=== PATIENT | male | born 1925 | race Caucasian/White ===

== ENCOUNTER 2016-10-01 15:22 | Inpatient (IN) | payer MEDICARE ==
[~2016-10-01] VITALS: Ht 180.3 cm; Wt 94.0 kg
[~2016-10-01 15:22] MED LIST: 00186-0372-20 IH; ASPIRIN E.C. 8181 MG PO; CPAP; FLOMAX 0.40.4 MG/CAP PO; LASIX 20MG TABL20 MG PO; PROSCAR 5MG5 MG PO; PROVENTIL0.09 MG/A1; RT SPIRIVA18 MCG IH; SYNTHROID0.05 MG/TA PO; ZOCOR 80MG80 MG PO
[2016-10-01] MEDS ORDERED: PRINIVIL5 MG PO (15:44)
[2016-10-01 15:58] LABS: BASO # 0.1 (0.0-0.2); BASO % 0.4 % (0.0-2.0); EOS # 0.2 (0.0-0.7); EOS % 1.3 % (0-4.0); GRAN # 7.9 (1.4-6.5); GRAN % 67.9 % (42.2-75.2); HEMATOCRIT 40.4 % (42.0-52.0); HEMOGLOBIN 13.7 g/dl (13.5-18.0); LYMPH # 2.5 (1.2-3.4); LYMPH % 21.8 % (20.0-51.0); MEAN CELL VOLUME 94 fl (80.0-100.0); MEAN CORPUSCULAR HEMOGLOBIN 32 pg (27.0-31.0); MEAN CORPUSCULAR HGB CONC 34 g/dl (33.0-37.0); MEAN PLATELET VOLUME 9.7 fl (7.4-10.4); MONO % 8.3 % (1.7-9.3); PLATELET COUNT 247 K/mm3 (130-400); RED BLOOD COUNT 4.28 M/mm3 (4.20-5.60); REDCELL DISTRIBUTION WIDTH-CV 12.4 % (11.5-14.5); WHITE BLOOD COUNT 11.6 K/mm3 (4.8-10.8)
[2016-10-01 16:00] LABS: ADJUSTED CALCIUM 8.9 mg/dL (8.4-10.2); ALANINE AMINOTRANSFERASE 32 U/L (21-72); ALBUMIN 3.9 gm/dL (3.5-5.0); ALKALINE PHOSPHATASE 70 U/L (50-136); ANION GAP 10 mmol/L (7-16); BILIRUBIN,TOTAL 0.8 mg/dL (0.0-1.0); BLOOD UREA NITROGEN 14 mg/dL (9-20); CALCIUM 8.8 mg/dL (8.4-10.2); CARBON DIOXIDE 25 mmol/L (22-30); CHLORIDE 100 mmol/L (98-107); CREATININE, serum 0.93 mg/dL (0.66-1.25); GLUCOSE 124 mg/dL (74-106); LIPASE 20 U/L (23-300); POTASSIUM 4.6 mmol/L (3.4-5.0); SODIUM 135 mmol/L (137-145); TOTAL PROTEIN 7.2 gm/dL (6.4-8.2)
[2016-10-01 16:16] LABS: TROPONIN-I < 0.012 ng/mL (0.000-0.034)
[2016-10-01 16:25] LABS: PH 6 (5-8); SQUAMOUS EPITHELIAL 0-2 /hpf; URINE APPEARANCE Clear; URINE BACTERIA None Seen /hpf; URINE BILIRUBIN Negative (NEGATIVE); URINE BLOOD Negative (NEGATIVE); URINE COLOR Yellow; URINE GLUCOSE Negative (NEGATIVE); URINE KETONE Negative (NEGATIVE); URINE RBC 0-2 /hpf; URINE UROBILINOGEN Negative (NEGATIVE)
[2016-10-01 20:26] VITALS: BP 102/84; PULSE 72; TEMP 98.9
[2016-10-01 23:59] VITALS: BP 138/44; PULSE 65; TEMP 98.7
[2016-10-02 03:18] VITALS: BP 146/52; PULSE 62; TEMP 98.3
[2016-10-02 08:59] VITALS: BP 140/49; PULSE 62; TEMP 98.3
[2016-10-02 09:27] LABS: HEMATOCRIT 40.7 % (42.0-52.0); HEMOGLOBIN 13.4 g/dl (13.5-18.0); MEAN CELL VOLUME 97 fl (80.0-100.0); MEAN CORPUSCULAR HEMOGLOBIN 32 pg (27.0-31.0); MEAN CORPUSCULAR HGB CONC 33 g/dl (33.0-37.0); MEAN PLATELET VOLUME 10.4 fl (7.4-10.4); PLATELET COUNT 201 K/mm3 (130-400); RED BLOOD COUNT 4.21 M/mm3 (4.20-5.60); REDCELL DISTRIBUTION WIDTH-CV 12.4 % (11.5-14.5); WHITE BLOOD COUNT 17.5 K/mm3 (4.8-10.8)
[2016-10-02 09:33] LABS: ADD PATHOLOGY DIFF REVIEW NO
[2016-10-02 09:39] LABS: CALCIUM 8.4 mg/dL (8.4-10.2); CREATININE, serum 0.9 mg/dL (0.66-1.25); POTASSIUM 4.6 mmol/L (3.4-5.0)
[2016-10-02 09:52] LABS: BAND 14 % (0-10); METAMYELOCYTE 1 % (0-0); NEUTROPHILS 81 % (42.0-75.2); PLATELET ESTIMATE NORMAL (NORMAL); TOTAL CELLS COUNTED 100
[2016-10-02 11:55] VITALS: BP 143/56; PULSE 72; TEMP 97.4
[2016-10-02 16:16] VITALS: BP 141/49; PULSE 73; TEMP 97.6
[2016-10-02 20:24] VITALS: BP 146/39; PULSE 91; TEMP 98
[2016-10-02 23:14] VITALS: BP 143/45; PULSE 82; TEMP 98.7
[2016-10-03] VITALS (11 sets, daily range): BP systolic 138–167; BP diastolic 44–78; PULSE 81–96; TEMP 96.6–98.7
[2016-10-04 03:41] VITALS: BP 127/74; PULSE 79; TEMP 98.4
[2016-10-04 08:14] VITALS: BP 165/60; PULSE 97; TEMP 97.7
[2016-10-04] MEDS ORDERED: PREDNISONE20 MG PO (10:58)
[2016-10-04] MEDS ORDERED: CEFTIN500 MG PO (11:07)
[2016-10-04] MEDS ORDERED: DOXYCYCLINE 10100 MG PO (11:07)
[2016-10-04 11:29] LABS: HEMOGLOBIN 12.4 g/dl (13.5-18.0); MEAN CELL VOLUME 97 fl (80.0-100.0); MEAN CORPUSCULAR HEMOGLOBIN 32 pg (27.0-31.0); MEAN CORPUSCULAR HGB CONC 33 g/dl (33.0-37.0); MEAN PLATELET VOLUME 10.6 fl (7.4-10.4); PLATELET COUNT 196 K/mm3 (130-400); RED BLOOD COUNT 3.93 M/mm3 (4.20-5.60); REDCELL DISTRIBUTION WIDTH-CV 12.9 % (11.5-14.5); WHITE BLOOD COUNT 18.1 K/mm3 (4.8-10.8)
[2016-10-04 11:36] LABS: ADD PATHOLOGY DIFF REVIEW NO
[2016-10-04 12:03] LABS: BAND 17 % (0-10); METAMYELOCYTE 1 % (0-0); NEUTROPHILS 77 % (42.0-75.2); PLATELET ESTIMATE NORMAL (NORMAL); TOTAL CELLS COUNTED 100
[2016-10-04 12:39] VITALS: BP 185/60; PULSE 94; TEMP 97.5
== END 2016-10-04 14:30 | disposition home or self-care (01) | DRG 193 ==
LOC: COL.ER 15:22 → MEDICAL 19:46
PROVIDERS: Emergency Medicine; Internal Medicine Pulmonary Disease; Nurse Practitioner Family; Physician Assistant
PROC: 0B9B8ZX Drainage of Left Lower Lobe Bronchus, Via Natural or Artificial Opening Endoscopic, Diagnostic (ICD-10-PCS; 2016-10-03)
PROC: 0B968ZX Drainage of Right Lower Lobe Bronchus, Via Natural or Artificial Opening Endoscopic, Diagnostic (ICD-10-PCS; principal; 2016-10-03 11:00)
DX: J18.9 Pneumonia, unspecified organism (principal); J96.01 Acute respiratory failure with hypoxia; J44.1 Chronic obstructive pulmonary disease with (acute) exacerbation; N39.0 Urinary tract infection, site not specified; E87.1 Hypo-osmolality and hyponatremia; J90 Pleural effusion, not elsewhere classified; Z66 Do not resuscitate; I10 Essential (primary) hypertension; I71.4 Abdominal aortic aneurysm, without rupture; E03.9 Hypothyroidism, unspecified; G47.33 Obstructive sleep apnea (adult) (pediatric); N40.0 Benign prostatic hyperplasia without lower urinary tract symptoms; Z87.891 Personal history of nicotine dependence
CPT/HCPCS: 99222-AI; 99232-AI; 99239; A9284; J0456; J0696; J1170; J1650; J1885; J2405; J2704; J2920; J2930; J3010; J7030; J7040; J7050; Q9967

== ENCOUNTER → 2016-10-07 | Outpatient (CLI) | payer MEDICARE ==
[~2016-10-07] MED LIST changes: +CEFTIN500 MG PO; +CLEOCIN HCL300 MG PO; +DOXYCYCLINE 10100 MG PO; +LEVAQUIN 5500 MG/TA1 PO; +NORCO 325 MG-7.1 TAB PO; +PREDNISONE20 MG PO; +PRINIVIL5 MG PO; +ZOCOR 40MG40 MG PO
[2016-10-07 20:04] LABS: HEMATOCRIT 39.8 % (42.0-52.0); HEMOGLOBIN 13.3 g/dl (13.5-18.0); MEAN CELL VOLUME 94 fl (80.0-100.0); MEAN CORPUSCULAR HEMOGLOBIN 31 pg (27.0-31.0); MEAN CORPUSCULAR HGB CONC 33 g/dl (33.0-37.0); MEAN PLATELET VOLUME 11.1 fl (7.4-10.4); PLATELET COUNT 229 K/mm3 (130-400); RED BLOOD COUNT 4.23 M/mm3 (4.20-5.60); REDCELL DISTRIBUTION WIDTH-CV 12.5 % (11.5-14.5)
[2016-10-07 20:13] LABS: ADD PATHOLOGY DIFF REVIEW NO
[2016-10-07 21:31] LABS: BAND 15 % (0-10); NEUTROPHILS 76 % (42.0-75.2); TOTAL CELLS COUNTED 100
[2016-10-07 21:32] LABS: PLATELET ESTIMATE NORMAL (NORMAL)
== END ==
LOC: EDSTATUS 11:33 → ZCOL.LAB 11:35
PROVIDERS: Nurse Practitioner Family
DX: J18.9 Pneumonia, unspecified organism (principal); J90 Pleural effusion, not elsewhere classified

== ENCOUNTER 2016-10-11 09:41 | Inpatient (IN) | payer MEDICARE ==
[~2016-10-11] VITALS: Ht 180.3 cm; Wt 84.5 kg
[~2016-10-11 09:41] MED LIST changes: -CLEOCIN HCL300 MG PO; -LEVAQUIN 5500 MG/TA1 PO; -NORCO 325 MG-7.1 TAB PO; -ZOCOR 40MG40 MG PO
[2016-10-11] MEDS ORDERED: ZOCOR 40MG40 MG PO (10:08)
[2016-10-11 10:27] VITALS: BP 139/69; PULSE 72; TEMP 97.3
[2016-10-11 15:16] LABS: PLEURAL FLUID RIGHT SIDE; PLEURAL FLUID APPEARANCE CLOUDY; PLEURAL FLUID COLOR AMBER
[2016-10-11 15:20] LABS: GLUCOSE,PLEURAL FLUID 111 mg/dL
[2016-10-11 16:26] LABS: MEAN CELL VOLUME 94 fl (80.0-100.0); MEAN CORPUSCULAR HGB CONC 33 g/dl (33.0-37.0); MEAN PLATELET VOLUME 10.3 fl (7.4-10.4); PLATELET COUNT 172 K/mm3 (130-400); RED BLOOD COUNT 3.64 M/mm3 (4.20-5.60); REDCELL DISTRIBUTION WIDTH-CV 12.5 % (11.5-14.5)
[2016-10-11 16:36] LABS: HEMATOCRIT 34.2 % (42.0-52.0); HEMOGLOBIN 11.4 g/dl (13.5-18.0); MEAN CORPUSCULAR HEMOGLOBIN 31 pg (27.0-31.0)
[2016-10-11 16:37] LABS: ADD PATHOLOGY DIFF REVIEW NO; INR 1.2 (0.8-3.0); PROTHROMBIN TIME 13.4 SECONDS (9.7-12.8)
[2016-10-11 16:39] LABS: ADJUSTED CALCIUM 8.2 mg/dL (8.4-10.2); ALBUMIN 2.4 gm/dL (3.5-5.0); BILIRUBIN,TOTAL 1.1 mg/dL (0.0-1.0); CALCIUM 6.9 mg/dL (8.4-10.2); CREATININE, serum 0.68 mg/dL (0.66-1.25); MAGNESIUM 1.7 mg/dL (1.6-2.3); PHOSPHOROUS 2.8 mg/dL (2.5-4.5); TOTAL PROTEIN 4.8 gm/dL (6.4-8.2)
[2016-10-11 18:00] VITALS: BP 142/61; PULSE 63; TEMP 98.1
[2016-10-11 20:19] LABS: BAND 10 % (0-10); EOSINOPHIL 2 % (0-4); NEUTROPHILS 68 % (42.0-75.2); TOTAL CELLS COUNTED 100
[2016-10-11 21:37] VITALS: BP 169/57; PULSE 66; TEMP 98.1
[2016-10-12] VITALS (13 sets, daily range): BP systolic 130–167; BP diastolic 49–84; PULSE 64–87; TEMP 97.4–98.9
[2016-10-13 02:34] VITALS: BP 132/75; PULSE 87; TEMP 98
[2016-10-13 05:12] VITALS: BP 116/67; PULSE 68; TEMP 97.4
[2016-10-13 07:34] LABS: BASO % 0.2 % (0.0-2.0); EOS # 0.2 (0.0-0.7); EOS % 1.4 % (0-4.0); GRAN # 13.6 (1.4-6.5); GRAN % 80.4 % (42.2-75.2); HEMATOCRIT 39.2 % (42.0-52.0); HEMOGLOBIN 12.6 g/dl (13.5-18.0); LYMPH # 1.5 (1.2-3.4); LYMPH % 8.9 % (20.0-51.0); MEAN CELL VOLUME 98 fl (80.0-100.0); MEAN CORPUSCULAR HEMOGLOBIN 31 pg (27.0-31.0); MEAN CORPUSCULAR HGB CONC 32 g/dl (33.0-37.0); MEAN PLATELET VOLUME 10.6 fl (7.4-10.4); MONO # 1.4 (0.1-0.6); PLATELET COUNT 170 K/mm3 (130-400); RED BLOOD COUNT 4.01 M/mm3 (4.20-5.60); REDCELL DISTRIBUTION WIDTH-CV 12.5 % (11.5-14.5)
[2016-10-13 08:03] LABS: CALCIUM 8.2 mg/dL (8.4-10.2); CREATININE, serum 0.82 mg/dL (0.66-1.25); POTASSIUM 4.2 mmol/L (3.4-5.0)
[2016-10-13 09:41] VITALS: BP 119/44; PULSE 70; TEMP 97.3
[2016-10-13 13:37] VITALS: BP 112/46; PULSE 89; TEMP 97.3
[2016-10-13 17:55] VITALS: BP 132/59; PULSE 87; TEMP 97.7
[2016-10-13 21:31] VITALS: BP 138/53; PULSE 92; TEMP 98
[2016-10-14 05:22] VITALS: BP 122/53; PULSE 69; TEMP 987
[2016-10-14 06:58] VITALS: BP 125/46; PULSE 69; TEMP 97.4
[2016-10-14 07:39] LABS: BASO % 0.2 % (0.0-2.0); EOS # 0.2 (0.0-0.7); EOS % 1.3 % (0-4.0); GRAN # 14.5 (1.4-6.5); GRAN % 81.3 % (42.2-75.2); HEMATOCRIT 38.7 % (42.0-52.0); HEMOGLOBIN 12.4 g/dl (13.5-18.0); LYMPH # 1.5 (1.2-3.4); LYMPH % 8.1 % (20.0-51.0); MEAN CELL VOLUME 98 fl (80.0-100.0); MEAN CORPUSCULAR HEMOGLOBIN 31 pg (27.0-31.0); MEAN CORPUSCULAR HGB CONC 32 g/dl (33.0-37.0); MEAN PLATELET VOLUME 10.5 fl (7.4-10.4); MONO # 1.5 (0.1-0.6); MONO % 8.2 % (1.7-9.3); PLATELET COUNT 151 K/mm3 (130-400); RED BLOOD COUNT 3.97 M/mm3 (4.20-5.60); REDCELL DISTRIBUTION WIDTH-CV 12.4 % (11.5-14.5); WHITE BLOOD COUNT 17.9 K/mm3 (4.8-10.8)
[2016-10-14 08:10] LABS: CALCIUM 8.4 mg/dL (8.4-10.2); CREATININE, serum 0.82 mg/dL (0.66-1.25); POTASSIUM 4.2 mmol/L (3.4-5.0)
[2016-10-14 10:00] VITALS: BP 125/47; PULSE 71; TEMP 97.4
[2016-10-14 13:25] VITALS: BP 119/45; PULSE 66; TEMP 98.1
[2016-10-14 17:40] VITALS: BP 167/48; PULSE 58; TEMP 98.7
[2016-10-14 21:51] VITALS: BP 156/44; PULSE 90; TEMP 98
[2016-10-15 01:53] VITALS: BP 134/44; PULSE 71; TEMP 97.5
[2016-10-15 06:24] VITALS: BP 132/71; PULSE 83; TEMP 97.5
[2016-10-15 08:00] LABS: BASO % 0.2 % (0.0-2.0); EOS # 0.2 (0.0-0.7); EOS % 1.3 % (0-4.0); GRAN # 11.6 (1.4-6.5); GRAN % 80.8 % (42.2-75.2); LYMPH # 1.2 (1.2-3.4); LYMPH % 8.1 % (20.0-51.0); MEAN CELL VOLUME 96 fl (80.0-100.0); MEAN CORPUSCULAR HGB CONC 33 g/dl (33.0-37.0); MEAN PLATELET VOLUME 10.7 fl (7.4-10.4); MONO # 1.3 (0.1-0.6); MONO % 8.8 % (1.7-9.3); PLATELET COUNT 139 K/mm3 (130-400); RED BLOOD COUNT 3.78 M/mm3 (4.20-5.60); REDCELL DISTRIBUTION WIDTH-CV 12.4 % (11.5-14.5); WHITE BLOOD COUNT 14.3 K/mm3 (4.8-10.8)
[2016-10-15 08:01] LABS: HEMATOCRIT 36.2 % (42.0-52.0); HEMOGLOBIN 11.9 g/dl (13.5-18.0); MEAN CORPUSCULAR HEMOGLOBIN 31 pg (27.0-31.0)
[2016-10-15 08:23] LABS: CALCIUM 8.1 mg/dL (8.4-10.2); CREATININE, serum 0.77 mg/dL (0.66-1.25)
[2016-10-15 09:30] VITALS: BP 133/46; PULSE 64; TEMP 97.4
[2016-10-15 14:24] VITALS: BP 125/42; PULSE 75; TEMP 97.1
[2016-10-15 17:21] VITALS: BP 126/49; PULSE 72; TEMP 98.5
[2016-10-15 22:38] VITALS: BP 125/49; PULSE 70; TEMP 97.4
[2016-10-16 06:22] VITALS: BP 147/58; PULSE 68; TEMP 97.9
[2016-10-16 07:07] LABS: BASO % 0.3 % (0.0-2.0); EOS # 0.2 (0.0-0.7); EOS % 2.1 % (0-4.0); GRAN # 7.1 (1.4-6.5); GRAN % 75.9 % (42.2-75.2); LYMPH # 1.1 (1.2-3.4); LYMPH % 11.6 % (20.0-51.0); MEAN CELL VOLUME 96 fl (80.0-100.0); MEAN CORPUSCULAR HGB CONC 32 g/dl (33.0-37.0); MEAN PLATELET VOLUME 10.3 fl (7.4-10.4); MONO # 0.9 (0.1-0.6); MONO % 9.4 % (1.7-9.3); PLATELET COUNT 143 K/mm3 (130-400); RED BLOOD COUNT 3.66 M/mm3 (4.20-5.60); REDCELL DISTRIBUTION WIDTH-CV 12.4 % (11.5-14.5); WHITE BLOOD COUNT 9.3 K/mm3 (4.8-10.8)
[2016-10-16 07:26] LABS: HEMATOCRIT 35.2 % (42.0-52.0); HEMOGLOBIN 11.4 g/dl (13.5-18.0); MEAN CORPUSCULAR HEMOGLOBIN 31 pg (27.0-31.0)
[2016-10-16 07:36] LABS: CALCIUM 8.1 mg/dL (8.4-10.2); CREATININE, serum 0.77 mg/dL (0.66-1.25)
[2016-10-16 10:48] VITALS: BP 132/44; PULSE 57; TEMP 97.3
[2016-10-16 14:00] VITALS: BP 152/52; PULSE 68; TEMP 97
[2016-10-16 18:34] VITALS: BP 154/50; PULSE 74; TEMP 98.5
[2016-10-16 21:38] VITALS: BP 151/59; PULSE 76; TEMP 97
[2016-10-17 05:28] VITALS: BP 149/62; PULSE 85; TEMP 98.2
[2016-10-17] MEDS ORDERED: NORCO 325 MG-7.1 TAB PO (08:11)
[2016-10-17] MEDS ORDERED: LEVAQUIN 5500 MG/TA1 PO (08:12)
[2016-10-17] MEDS ORDERED: CLEOCIN HCL300 MG PO (08:13)
[2016-10-17 10:00] VITALS: BP 142/49; PULSE 66; TEMP 97.4
[2016-10-17 11:52] VITALS: BP 142/49; PULSE 66; TEMP 97.4
== END 2016-10-17 12:45 | DRG 187 ==
LOC: SDCO 09:41 → SURG 13:36 → SDCO 13:38 → SURG 13:38
PROVIDERS: Internal Medicine; Internal Medicine Pulmonary Disease
PROC: 0W993ZX Drainage of Right Pleural Cavity, Percutaneous Approach, Diagnostic (ICD-10-PCS; principal; 2016-10-11 11:45)
PROC: 0W9930Z Drainage of Right Pleural Cavity with Drainage Device, Percutaneous Approach (ICD-10-PCS; 2016-10-12)
DX: J90 Pleural effusion, not elsewhere classified (principal); J95.811 Postprocedural pneumothorax; J44.9 Chronic obstructive pulmonary disease, unspecified; I10 Essential (primary) hypertension; I25.10 Atherosclerotic heart disease of native coronary artery without angina pectoris; Z95.5 Presence of coronary angioplasty implant and graft; Z87.891 Personal history of nicotine dependence; G47.33 Obstructive sleep apnea (adult) (pediatric); E87.6 Hypokalemia
CPT/HCPCS: 99222-AI; 99232-AI; 99239; A7048; A9284; C1751; J1644; J1956; J2185; J2704; J3010; J3370; J7050; J7120